=== PATIENT | female | born 1950 ===

== ENCOUNTER 2018-03-10 10:46 | Inpatient (IN) | payer MEDICARE, BC, OTHER ==
[2018-03-10] MEDS ORDERED: SODIUM CHLORIDE 0.9% 1000ML 1,000 ML IV ONE (11:01)
[2018-03-10] MEDS ORDERED: LORAZEPAM 2 MG/ML SOL IV ONE ×3 (11:15→17:57)
[2018-03-10] MEDS ORDERED: LORAZEPAM 2 MG/ML SOL ONE ×2 (11:18→12:24)
[2018-03-10 11:24] LABS: BASOPHILS % (AUTO) 2 % (0-3); EOSINOPHILS % (AUTO) 1 % (0-9); HEMATOCRIT 34 % (35-47); HEMOGLOBIN 11.6 gm/dl (12.0-15.5); LYMPHOCYTES % (AUTO) 12.6 % (10-50); MEAN CORPUSCULAR HEMOGLOBIN 31.6 pg (27.0-32.0); MEAN CORPUSCULAR HGB CONC 34.1 gm/dl (32.0-36.0); MEAN CORPUSCULAR VOLUME 93 fL (81-99); MONOCYTES % (AUTO) 5.1 % (0-12); NEUTROPHILS % (AUTO) 79.4 % (37-80)
[2018-03-10 11:33] LABS: ALBUMIN 3.3 gm/dl (3.4-5.0); BILIRUBIN,TOTAL 0.3 mg/dl (0.2-1.0); CALCIUM 7.8 mg/dl (8.5-10.1); CARBON DIOXIDE 27.5 mEq/L (21-32); CREATININE 0.81 mg/dl (0.60-1.00); POTASSIUM 3.7 mMol/L (3.5-5.1); TOTAL PROTEIN 7.2 gm/dl (6.4-8.2)
[2018-03-10 12:05] LABS: APPEARANCE,URINE Clear; BILIRUBIN,URINE NEGATIVE (NEGATIVE); COLOR,URINE Light yellow; GLUCOSE, URINE (UA) NEGATIVE (NEGATIVE); KETONES,URINE NEGATIVE (NEGATIVE); LEUKOCYTE ESTERASE ,URINE NEGATIVE (NEGATIVE); NITRATE,URINE NEGATIVE (NEGATIVE); OCCULT BLOOD,URINE TRACE INTACT (NEG-TRACE); PH,URINE 7.5; UROBILINOGEN,URINE 0.2 (0.2-1.0 EU)
[2018-03-10 12:15] LABS: AMPHETAMINES NEGATIVE (NEGATIVE); BACTERIA TRACE (< 1+); BARBITUATES POSITIVE (NEGATIVE); BENZODIAZEPINES NEGATIVE (NEGATIVE); CANNABINOL(THC) NEGATIVE (NEGATIVE); COCAINE(COC) NEGATIVE (NEGATIVE); CRYSTALS NEGATIVE (0-3 AVE/HPF); EPITHELIAL CELLS 0-3 (SQUAMOUS); METHADONE NEGATIVE (NEGATIVE); METHAMPHETAMINES NEGATIVE (NEGATIVE); OPIATES(OP13) NEGATIVE (NEGATIVE); OXYCODONE(OXY) NEGATIVE (NEGATIVE); PROPOXYPHENE(PPX) NEGATIVE (NEGATIVE); RBC,URINE 0-1 (0-3AV/HPF); TRICYCLIC ANTIDEPRESSANTS NEGATIVE (NEGATIVE); WBC,URINE NEGATIVE (0-5AV/HPF)
[2018-03-10] MEDS ORDERED: CALCIUM GLUCONATE 100 MG/ML SOL IV ONE (13:44)
[2018-03-10] MEDS ORDERED: PHENYTOIN SODIUM IV SCH (13:45)
[2018-03-10] MEDS: SODIUM CHLORIDE 0.9% 1000ML 1,000 ML IV SCH ×2 (15:30→23:22)
[2018-03-10] MEDS: PHENYTOIN SODIUM, ER 100 MG CAPSULE PO SCH ×2 (18:10→22:18)
[2018-03-10] MEDS ORDERED: INSULIN GLARGINE, RECOMBINAN 100 U/ML SOL SC SCH (21:00)
[2018-03-10] MEDS ORDERED: SIMVASTATIN 20 MG TAB PO SCH (21:00)
[2018-03-10] MEDS: LEVETIRACETAM 1000 MG PO SCH (22:18)
[2018-03-11] MEDS: PHENYTOIN SODIUM, ER 100 MG CAPSULE PO SCH ×3 (06:44→14:03)
[2018-03-11] MEDS: SODIUM CHLORIDE 0.9% 1000ML 1,000 ML IV SCH ×2 (07:52→10:02)
[2018-03-11] MEDS ORDERED: LEVETIRACETAM 250 MG TAB ONE (08:18)
[2018-03-11] MEDS: LEVETIRACETAM 1000 MG PO SCH (08:25)
[2018-03-11 08:51] LABS: ALBUMIN 3.5 gm/dl (3.4-5.0); BILIRUBIN,TOTAL 0.4 mg/dl (0.2-1.0); CALCIUM 8.3 mg/dl (8.5-10.1); CARBON DIOXIDE 25.7 mEq/L (21-32); CREATININE 0.75 mg/dl (0.60-1.00); POTASSIUM 3.4 mMol/L (3.5-5.1); TOTAL PROTEIN 7.7 gm/dl (6.4-8.2)
[2018-03-11] MEDS ORDERED: ENOXAPARIN 40 MG SOL SC SCH (09:00)
[2018-03-11] MEDS ORDERED: MULTIVITAMIN2 1 EA TAB PO SCH (09:00)
[2018-03-11] MEDS ORDERED: LISINOPRIL 5 MG TAB PO SCH (09:00)
[2018-03-11] MEDS ORDERED: CELECOXIB 100 MG CAP PO SCH (09:00)
[2018-03-11 09:07] VITALS: RESP 20; O2SAT 100
[2018-03-11] MEDS ORDERED: LORAZEPAM 2 MG/ML SOL IV ONE ×2 (09:50→10:30)
[2018-03-11] MEDS: POTASSIUM CHLORIDE 10 MEQ TER PO SCH ×2 (11:10→14:04)
[2018-03-11 16:46] VITALS: BP 161/80; PULSE 77; TEMP 98.6
[2018-03-11] MEDS ORDERED: THIAMINE 100 MG TAB PO SCH (17:45)
[2018-03-11] MEDS ORDERED: LEVETIRACETAM 250 MG TAB PO SCH (21:00)
[2018-03-12 15:52] LABS: *PHENYTOIN FREE SERUM <0.8 mcg/mL (1.0 - 2.0)
[2018-03-13 07:55] LABS: *KEPPRA LEVETIRACETEM 26.2 mcg/mL (12.0 - 46.0); *PHENYTOIN TOTAL 6.8 mcg/mL (10.0 - 20.0)
== END 2018-03-11 18:40 | disposition short-term general hospital (02) | DRG 101 ==
LOC: ED 10:46 → ACUTE CARE 12:45 → UNDOADMIN 12:45 → ACUTE CARE 13:12
PROVIDERS: ADMIT Family Medicine; ATTEND Family Medicine
DX: R56.9 Unspecified convulsions (principal); E11.319 Type 2 diabetes mellitus with unspecified diabetic retinopathy without macular edema; E87.1 Hypo-osmolality and hyponatremia; E83.51 Hypocalcemia; R40.2352 Coma scale, best motor response, localizes pain, at arrival to emergency department; R40.2142 Coma scale, eyes open, spontaneous, at arrival to emergency department; R40.2242 Coma scale, best verbal response, confused conversation, at arrival to emergency department; Z79.4 Long term (current) use of insulin; Z79.899 Other long term (current) drug therapy; R41.0 Disorientation, unspecified
CPT/HCPCS: 36415; 70450; 80053; 80305; 80307; 81001; 82962; 85025; 93012; 96365; 96366; 96374; 99222; 99285; J0610; J1650; J1817; J2060; A6446; A9270-GY; J1165